=== PATIENT | male | born 1960 | race Caucasian/White ===

== ENCOUNTER → 2017-01-05 | Outpatient (CLI) | payer OTHER ==
--- NOTE | 2017-01-05 09:39 | US ---
EXAMINATION: Right upper quadrant ultrasound HISTORY: Alpha-1 antitrypsin deficiency COMPARISON: None TECHNIQUE: Grayscale and color Doppler images obtained of the right upper quadrant. FINDINGS: The pancreas is not well characterized. The liver appears normal in contour, echogenicity and size without a focal hepatic mass. The gallbladder wall thickness is normal. No pericholecystic fluid or shadowing gallstones. Common bile duct measures 2 mm. The right kidney measures 10.8 cm roberta e-to-pole without evidence of hydronephrosis. The sonographic Morse sign is negative. IMPRESSION: Unremarkable right upper quadrant ultrasound.
== END ==
LOC: MW.US 08:55
PROVIDERS: ATTEND Internal Medicine
DX: E88.01 Alpha-1-antitrypsin deficiency (principal)
CPT/HCPCS: 76705; 76705-26

== ENCOUNTER 2021-12-15 20:23 | Inpatient (IN) | payer SELFPAY ==
[2021-12-15] MEDS ORDERED: Benzonatate 100 MG Cap PO PRN (21:41)
[2021-12-15] MEDS ORDERED: Bisacodyl 5 MG Tab PO PRN (21:42)
[2021-12-15] MEDS ORDERED: Haloperidol 1 MG Tab PO PRN (21:43)
[2021-12-15] MEDS ORDERED: Ipratropium 0.02% 0.5 MG/2.5 ML Neb Soln NEB PRN (21:45)
[2021-12-15] MEDS ORDERED: Albuterol/Ipratropium 3.0-0.5 MG/3 ML Neb Soln NEB PRN (21:49)
[2021-12-15] MEDS ORDERED: Hyoscyamine 0.125 MG/ML Bottle PO PRN (21:57)
[2021-12-15] MEDS ORDERED: LORazepam 0.5 MG Tab PO PRN (22:01)
[2021-12-15] MEDS ORDERED: Morphine 100 MG/5 ML (15 ML) Oral Solution PO PRN (22:04)
[2021-12-16] MEDS: Omeprazole 20 MG Cap.CR PO SCH (06:38)
[2021-12-16] MEDS ORDERED: Morphine 10 MG/0.5 ML Oral Syringe PO PRN (08:00)
[2021-12-16] MEDS: Citalopram 20 MG Tab PO SCH (08:45)
[2021-12-16] MEDS ORDERED: Morphine 15 MG Tab.ER PO SCH ×2 (09:00→12:00)
[2021-12-16] MEDS: Morphine 15 MG Tab.ER PO SCH (22:04)
[2021-12-17] MEDS: Omeprazole 20 MG Cap.CR PO SCH (06:34)
[2021-12-17] MEDS: Citalopram 20 MG Tab PO SCH (09:33)
[2021-12-17] MEDS: Morphine 15 MG Tab.ER PO SCH (09:33)
[2021-12-17] MEDS ORDERED: Morphine 15 MG Tab.ER PO SCH (12:00)
== END 2021-12-17 12:37 | disposition home or self-care (01) | DRG 951 ==
LOC: MW.MS 20:23
PROVIDERS: ADMIT Student in an Organized Health Care Education/Training Program; ATTEND Student in an Organized Health Care Education/Training Program
DX: Z75.5 Holiday relief care (principal); Z51.5 Encounter for palliative care; J44.9 Chronic obstructive pulmonary disease, unspecified
CPT/HCPCS: A9270-GY; J7620-GY